=== PATIENT | male | born 1985 | race African-American/Black ===

== ENCOUNTER 2017-02-05 22:18 | Emergency (ER) | payer SELFPAY ==
[~2017-02-05] VITALS: Ht 177.8 cm; Wt 108.9 kg
[~2017-02-05 22:18] MED LIST: ALBUTEROL SULF8.5 GM INH; AZITHROMYCIN250 MG ORAL; CEPHALEXIN500 MG ORAL; CLARITIN-D 241 EACH PO; LORATADINE10 M1 PO; NORCO 5-325 TA1 EACH PO; PREDNISONE20 MG ORAL; PREDNISONE50 MG ORAL; PROAIR HFA8.5 GM INH; TRIAMCINOLONE A15 G3 TP
[2017-02-05 22:32] VITALS: BP 159/91
[2017-02-05] MEDS ORDERED: Albuterol ud Inhalation HHN ONE (22:45)
[2017-02-05] MEDS ORDERED: PredniSONE 20mg tab ORAL ONE (22:45)
[2017-02-05] MEDS ORDERED: PREDNISONE20 MG ORAL (22:46)
[2017-02-05] MEDS ORDERED: VENTOLIN HFA18 GM INH (22:46)
--- NOTE | 2017-02-05 23:14 | Emergency Room Report ---
History of Present Illness General Chief Complaint: Asthma Source: Patient Present Illness HPI 31 YOM with known asthma with 2 days chest tightness. Denies chest pain, SOB, fever/chills, URI symptoms. Used albuterol pump at home but "my girlfriend made me come in to get treatment." Allergies: Coded Allergies: No Known Allergies (Unverified , 06/05/13) Patient History Past Medical History: asthma Past Surgical History: none Pertinent Family History: none Social History: Denies: alcohol use, drug use, smoking Immunizations: UTD Reviewed Nursing Documentation: PMH: Agreed, PSxH: Agreed Nursing Documentation-PMH Hx Asthma: Yes Review of Systems All Other Systems: negative except mentioned in HPI Physical Exam Vital Signs Date Time Temp Pulse Resp B/P Pulse Ox O2 Delivery O2 Flow Rate FiO2 02/05/17 22:26 98.6 87 16 159/91 99 Room Air Sp02 EP Interpretation: reviewed, normal General Appearance: normal inspection, well appearing, no apparent distress, alert, GCS 15, non-toxic Head: normocephalic, atraumatic Eyes: bilateral eye EOMI, bilateral eye PERRL ENT: normal ENT inspection, hearing grossly normal, normal voice Neck: normal inspection, full range of motion, supple, no bony tend Respiratory: normal inspection, lungs clear, normal breath sounds, no rhonchi, no respiratory distress, no retraction, no accessory muscle use, speaking full sentences, wheezing Cardiovascular #1: regular rate, rhythm, no edema Gastrointestinal: normal inspection, normal bowel sounds, non tender, soft, no guarding, no hernia Genitourinary: no CVA tenderness Musculoskeletal: normal inspection, back normal, normal range of motion, Twan' s Sign negative Neurologic: normal inspection, alert, oriented x3, responsive, 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 VSS. Afebrile. No access muscle use, hypoxia. Mild insp/ exp wheezing Speaking full sentences Improved with 1 neb, prednisone Lungs CTAB after neb Rx prednisone, albuterol refilled Advised PMD followup Last Vital Signs Date Time Temp Pulse Resp B/P Pulse Ox O2 Delivery O2 Flow Rate FiO2 02/05/17 23:10 89 18 99 Room Air 02/05/17 22:32 98.6 159/91 Status: improved Disposition: HOME, SELF-CARE Condition: Improved Scripts Albuterol Sulfate (VENTOLIN HFA) 18 Gm Hfa.aer.ad 2 PUFFS INH EVERY 6 HOURS, #18 GM 0 Refills Prov: OK CUEVAS M.D. 02/05/17 Prednisone* (PREDNISONE*) 20 Mg Tablet 20 MG ORAL BID for 3 Days, #6 TAB Prov: OK CUEVAS M.D. 02/05/17 Referrals: NOT CHOSEN [facility]/,REFERRING (PCP) Patient Instructions: Asthma, Adult Additional Instructions: - Take prednisone twice daily for next 3 days starting tomorrow/Monday - Follow up with your doctor in 1 week OK CUEVAS M.D. Feb 05, 2017 23:14
[2017-02-05 23:15] VITALS: BP 159/91
== END 2017-02-05 23:15 | disposition home or self-care (01) ==
LOC: EMR 23:11
DX: J45.901 Unspecified asthma with (acute) exacerbation (principal)
CPT/HCPCS: 94640; 94664; 99284

== ENCOUNTER 2018-09-06 10:53 | Emergency (ER) | payer OTHER ==
[~2018-09-06] VITALS: Ht 177.8 cm; Wt 124.7 kg
[~2018-09-06 10:53] MED LIST changes: +VENTOLIN HFA18 GM INH
[2018-09-06] MEDS ORDERED: FLUCONAZOLE100 MG ORAL (11:24)
[2018-09-06] MEDS ORDERED: CLOTRIMAZOLE15 GM TOPIC (11:25)
[2018-09-06 11:32] VITALS: BP 154/101
[2018-09-06 11:34] VITALS: BP 154/101
--- NOTE | 2018-09-06 14:31 | Emergency Room Report ---
History of Present Illness General Chief Complaint: Skin Rash/Abscess Source: Patient, Medical Record Present Illness HPI 33-year-old male presents ED c/o rash to his hands and feet. started 2 weeks ago after getting a manicure/pedicure. states he has not recieved treatment yet. states it is very itchy. denies pain. denies fevers or chills. Denies any known food or drug allergies. Denies sick contacts or recent travel. No other aggravating relieving factors. Denies any other associated symptoms Allergies: Coded Allergies: No Known Allergies (Unverified , 06/05/13) Patient History Past Medical History: asthma Past Surgical History: none Pertinent Family History: none Social History: Denies: smoking, alcohol use, drug use Immunizations: UTD Reviewed Nursing Documentation: PMH: Agreed; PSxH: Agreed Nursing Documentation-PMH Past Medical History: No History, Except For Hx Asthma: Yes Review of Systems All Other Systems: negative except mentioned in HPI Physical Exam Vital Signs Date Time Temp Pulse Resp B/P (MAP) Pulse Ox O2 Delivery O2 Flow Rate FiO2 09/06/18 11:01 98.0 100 19 190/95 99 Room Air 98.1 Sp02 EP Interpretation: reviewed, normal General Appearance: no apparent distress, alert, GCS 15, non-toxic Head: normocephalic Eyes: bilateral eye normal inspection, bilateral eye PERRL ENT: normal ENT inspection Neck: normal inspection Respiratory: normal inspection Cardiovascular #1: normal inspection Gastrointestinal: normal inspection Rectal: deferred Genitourinary: no CVA tenderness Musculoskeletal: normal inspection Neurologic: alert, oriented x3, responsive, motor strength/tone normal, sensory intact, speech normal Psychiatric: judgement/insight normal, memory normal, mood/affect normal, no suicidal/homicidal ideation Skin: other - large, diffuse satellite discolored lesions on bilateral feet. Lymphatic: normal inspection Medical Decision Making Diagnostic Impression: Primary Impression: Rash ER Course Hospital Course 33-year-old male presents to ED with rash to hands and feet Differential diagnoses include: Cellulitis, dermatitis, insect bite, abscess Clinical course Patient placed on stretcher. After initial history, physical exam reveals a male in no acute distress. On exam there are multiple discolored satellite lesions to the bilateral feet. Nonerythematous. Also small punctate lesions on the hands. Given clinical history consistent with fungal infection. However given its diffuse I will prescribe oral fluconazole. Recommend close follow-up with PMD/ dermatology Diagnosis - rash stable and discharged to home with prescription for fluconazole, clotrimazole. Instructed to followup with PMD/dermatology. Instructed return to ED if symptoms recur or worsen Last Vital Signs Date Time Temp Pulse Resp B/P (MAP) Pulse Ox O2 Delivery O2 Flow Rate FiO2 09/06/18 11:34 98.1 87 19 154/101 99 Room Air 98.1 Status: improved Disposition: HOME, SELF-CARE Condition: Stable Scripts Clotrimazole* (LOTRIMIN*) 15 Gm Cream..g. 1 APPLIC TOPIC TWICE A DAY, #15 GM Prov: Dragan Kenney MD 09/06/18 Fluconazole (FLUCONAZOLE) 100 Mg Tablet 100 MG ORAL DAILY, #7 TAB 0 Refills Prov: Dragan Kenney MD 09/06/18 Referrals: NOT CHOSEN IPA/,REFERRING BERTO HOYT M.D. Patient Instructions: Athlete's Foot, [id number] Dragan Kenney MD Sep 06, 2018 14:31
== END 2018-09-06 11:35 | disposition home or self-care (01) ==
LOC: EMR 11:10
DX: R21 Rash and other nonspecific skin eruption (principal); J45.909 Unspecified asthma, uncomplicated
CPT/HCPCS: 99283

== ENCOUNTER 2018-10-05 11:41 | Emergency (ER) | payer OTHER ==
[~2018-10-05] VITALS: Ht 177.8 cm; Wt 99.8 kg
[~2018-10-05 11:41] MED LIST changes: +CLOTRIMAZOLE15 GM TOPIC; +FLUCONAZOLE100 MG ORAL
[2018-10-05 11:45] VITALS: BP 159/87
[2018-10-05] MEDS ORDERED: NKM (11:56)
[2018-10-05] MEDS ORDERED: CLOBETASOL EMOL15 GM TP (12:30)
--- NOTE | 2018-10-05 12:32 | Emergency Room Report ---
History of Present Illness General Chief Complaint: Skin Rash/Abscess Source: Patient Present Illness HPI 33-year-old male patient presents ER complaining of pruritic rash on bilateral hands with past few days. Patient reports extremely pruritic. Denies recent travel. Denies camping or going outdoors. Reports recent prescription fungal foot infection, states he was seen by his health information specialist and prescribed triamcinolone. Denies loss of range of motion. Denies fever, chest shortness of breath. denies vomiting or diarrhea. Denies pain. denies joint pain. Allergies: Coded Allergies: No Known Allergies (Unverified , 06/05/13) Patient History Past Medical History: see triage record Reviewed Nursing Documentation: PMH: Agreed; PSxH: Agreed Nursing Documentation-PMH Hx Asthma: Yes Review of Systems All Other Systems: negative except mentioned in HPI Physical Exam Vital Signs Date Time Temp Pulse Resp B/P (MAP) Pulse Ox O2 Delivery O2 Flow Rate FiO2 10/05/18 11:45 97.3 99 18 159/87 99 Room Air Sp02 EP Interpretation: reviewed, normal General Appearance: well appearing, no apparent distress, alert, GCS 15, non- toxic Head: normocephalic, atraumatic Eyes: bilateral eye normal inspection, bilateral eye PERRL ENT: hearing grossly normal, normal pharynx, no angioedema, normal voice, uvula midline, moist mucus membranes Neck: full range of motion Respiratory: lungs clear, normal breath sounds, no rhonchi, no respiratory distress, no accessory muscle use, no wheezing, speaking full sentences Cardiovascular #1: regular rate, rhythm, no edema Cardiovascular #2: 2+ radial (R), 2+ radial (L) Musculoskeletal: back normal, digits/nails normal, gait/station normal, normal range of motion, non-tender Neurologic: alert, oriented x3, responsive, motor strength/tone normal, sensory intact Skin: other - wrists, hands, palms: hyperpigmented overlying excoriations, no surrounding erythema or edema, no bleeding or drainage, no red streaking Medical Decision Making PA Attestation Dr. Sam is my supervising Physician whom patient management has been discussed with. Diagnostic Impression: Primary Impression: Rash and other nonspecific skin eruption ER Course Pt. presents to the ED c/o rash on bilateral upper extremities. Ddx considered but are not limited to atopic dermatitis, scabies, shingles, hives, urticaria, angiodema, allergic reaction, impetigo. Vital signs: are WNL, pt. is afebrile ER COURSE physical exam consistent with lichen planus. Will provide patient with clobetasol prescription. Advised follow-up with dermatology. ER precautions given. Surrounding erythema or edema, no signs of cellulitis requiring antibiotics. DISCHARGE: RX provided for clobetasol At this time pt. is stable for d/c to home. Patient resting comfortably, in no acute distress, nontoxic appearinge. Will provide printed patient care instructions, and any necessary prescriptions. Care plan and follow up instructions have been discussed with the patient prior to discharge. Patient provided with list of healthcare clinics to establish primary care physician. Patient instructed to follow-up with primary care provider in 3 - 5 days. Patient questions asked and answered. ER precautions given. Patient instructed to return to ER immediately for any new or worsening of symptoms including but not limited to increasing SOB, persistent fever. - Please note that this Emergency Department Report was dictated using SHEEXtechnical training instructor technology software, occasionally this can lead to erroneous entry secondary to interpretation by the dictation equipment. Last Vital Signs Date Time Temp Pulse Resp B/P (MAP) Pulse Ox O2 Delivery O2 Flow Rate FiO2 10/05/18 11:45 97.3 99 18 159/87 99 Room Air Disposition: HOME, SELF-CARE Condition: Stable Scripts Clobetasol Propionate/Emoll (CLOBETASOL EMOLLIENT 0.05% CRM) 15 Gm Cream..g. 15 GM TP BID, #15 GM Prov: Ronaldo Vargas 10/05/18 Referrals: NOT CHOSEN IPA/,REFERRING (PCP) Patient Instructions: Lichen Planus, [id number], Rash Additional Instructions: Followup with primary care provider in 3 -5 days. Request referral to dermatology as needed. Do not scratch or itch. Apply cool compresses to affected area. Wash all clothes and bedding. Take medications as directed. Take 2 weeks on, one week off. Do not apply topical steroid medication to face or skin creases. SE Benadryl drowsiness, do not take prior to drinking, driving, operating heavy machinery. Take Claritin during the day and Benadryl at night for itching symptoms. Patient questions asked and answered. ER precautions given, patient instructed to return to ER immediately for any new or worsening of symptoms. [facility] Ronaldo Vargas Oct 05, 2018 12:31
[2018-10-05 12:46] VITALS: BP 143/76
== END 2018-10-05 12:47 | disposition home or self-care (01) ==
LOC: EMR 12:16
DX: R21 Rash and other nonspecific skin eruption (principal); L81.9 Disorder of pigmentation, unspecified; J45.909 Unspecified asthma, uncomplicated
CPT/HCPCS: 99282